=== PATIENT | female | born 1990 | race Caucasian/White ===

== ENCOUNTER → 2017-07-05 | Outpatient (CLI) | payer BC ==
[~2017-07-05] VITALS: Ht 167.6 cm; Wt 70.7 kg
[~2017-07-05] MED LIST: PRENATAL TABLE1 EAC3 PO
[2017-07-05 09:24] VITALS: BP 109/65
== END | disposition home or self-care (01) ==
LOC: IVINF 09:17
DX: Z31.82 Encounter for Rh incompatibility status (principal); Z3A.28 28 weeks gestation of pregnancy; Z67.91 Unspecified blood type, Rh negative
CPT/HCPCS: 96372; J2790

== ENCOUNTER 2017-09-26 17:24 | Outpatient (CLI) | payer BC ==
[~2017-09-26] VITALS: Ht 167.6 cm; Wt 78.6 kg
[2017-09-26 17:53] VITALS: BP 115/71
[2017-09-26 19:20] VITALS: BP 103/64
[2017-09-27] MEDS ORDERED: PERCOCET 5/31 TABLET PO (09:51)
[2017-09-27] MEDS ORDERED: MOTRIN800 MG PO (09:51)
== END 2017-09-26 20:45 | disposition home or self-care (01) ==
LOC: LDRP-OP 17:24 → 2WEST 17:26
DX: O47.1 False labor at or after 37 completed weeks of gestation (principal); O99.343 Other mental disorders complicating pregnancy, third trimester; F41.9 Anxiety disorder, unspecified; F32.9 Major depressive disorder, single episode, unspecified; F90.9 Attention-deficit hyperactivity disorder, unspecified type; Z87.440 Personal history of urinary (tract) infections; Z3A.40 40 weeks gestation of pregnancy
CPT/HCPCS: 59025; G0378

== ENCOUNTER 2017-09-26 23:03 | Inpatient (IN) | payer BC ==
[2017-09-26 23:43] VITALS: BP 133/76
[2017-09-26 23:55] LABS: BASOPHIL (%) 0.3 % (0-1); BASOPHIL COUNT 0.1 K/uL (0-0.1); EOSINOPHIL (%) 0.3 % (0-5); EOSINOPHIL COUNT 0.1 K/uL (0-0.3); HEMATOCRIT 36.3 % (36.0-46.0); HEMOGLOBIN 12.8 G/DL (11.9-15.5); IMMATURE GRANULOCYTE (%) 0.8 % (0.0-0.7); LYMPHOCYTE (%) 9.7 % (15-42); LYMPHOCYTE COUNT 1.7 K/uL (1.0-2.8); MCH 30.4 PG (29.0-34.0); MCHC 35.3 G/DL (30.0-36.0); MCV 86.2 FL (83-99); MONOCYTE (%) 6.3 % (3-12); MONOCYTE COUNT 1.1 K/uL (0-0.8); NEUTROPHIL (%) 82.6 % (45-76); NEUTROPHIL COUNT 14.3 K/uL (1.8-6.4); PLATELET COUNT 265 K/uL (156-360); RBC DIS.WIDTH-CV 13.2 % (11.8-14.6); RBC DIS.WIDTH-SD 40.8 % (39-53); RED BLOOD COUNT 4.21 M/uL (3.80-5.20); WHITE BLOOD COUNT 17.4 K/uL (4.1-10.2)
[2017-09-27] VITALS (31 sets, daily range): BP systolic 95–141; BP diastolic 51–85
[2017-09-27] MEDS ORDERED: PERCOCET 5/31 TABLET PO (09:51)
[2017-09-27] MEDS ORDERED: MOTRIN800 MG PO (09:51)
[2017-09-28 03:28] VITALS: BP 98/62
[2017-09-28 07:21] LABS: BASOPHIL (%) 0.2 % (0-1); EOSINOPHIL (%) 1.1 % (0-5); EOSINOPHIL COUNT 0.2 K/uL (0-0.3); HEMATOCRIT 26.5 % (36.0-46.0); IMMATURE GRANULOCYTE (%) 0.8 % (0.0-0.7); LYMPHOCYTE (%) 11.5 % (15-42); MCH 29.5 PG (29.0-34.0); MCHC 33.2 G/DL (30.0-36.0); MCV 88.9 FL (83-99); MONOCYTE COUNT 1.2 K/uL (0-0.8); NEUTROPHIL (%) 79.4 % (45-76); NEUTROPHIL COUNT 13.6 K/uL (1.8-6.4); PLATELET COUNT 192 K/uL (156-360); RBC DIS.WIDTH-CV 13.7 % (11.8-14.6); RBC DIS.WIDTH-SD 44.4 % (39-53); WHITE BLOOD COUNT 17.1 K/uL (4.1-10.2)
[2017-09-28 07:22] LABS: HEMOGLOBIN 8.8 G/DL (11.9-15.5); RED BLOOD COUNT 2.98 M/uL (3.80-5.20)
[2017-09-28 08:06] VITALS: BP 95/64
[2017-09-28 12:03] VITALS: BP 124/68
[2017-09-28 14:11] VITALS: BP 107/64
[2017-09-28 20:21] VITALS: BP 104/57
[2017-09-28 23:30] VITALS: BP 98/53
[2017-09-29 02:56] VITALS: BP 102/70
[2017-09-29 07:42] VITALS: BP 113/66
[2017-09-29 10:29] VITALS: BP 101/57
[2017-09-29 15:21] VITALS: BP 96/62
[2017-09-29 22:58] VITALS: BP 114/78
[2017-09-30 06:55] VITALS: BP 108/60
== END 2017-09-30 11:09 | disposition home or self-care (01) | DRG 766 ==
LOC: LDRP-OP 23:03 → 2WEST 23:05 → LDRP-OP 10-29 21:54
PROVIDERS: Midwife; Obstetrics & Gynecology
PROC: 10907ZC Drainage of Amniotic Fluid, Therapeutic from Products of Conception, Via Natural or Artificial Opening (ICD-10-PCS; principal; 2017-09-27)
PROC: 10D00Z1 Extraction of Products of Conception, Low, Open Approach (ICD-10-PCS; principal; 2017-09-27)
PROC: 00HU33Z Insertion of Infusion Device into Spinal Canal, Percutaneous Approach (ICD-10-PCS; principal; 2017-09-27)
PROC: 10H07YZ Insertion of Other Device into Products of Conception, Via Natural or Artificial Opening (ICD-10-PCS; 2017-09-27)
PROC: 3E0R3BZ Introduction of Anesthetic Agent into Spinal Canal, Percutaneous Approach (ICD-10-PCS; 2017-09-27)
DX: O62.0 Primary inadequate contractions (principal); O76 Abnormality in fetal heart rate and rhythm complicating labor and delivery; Z37.0 Single live birth; Z3A.40 40 weeks gestation of pregnancy
CPT/HCPCS: 59025; 83030; 85025; 86850; 86870; 86900; 86901; 86905; 86920; C1755; G0378; J0131; J0690; J1885; J2274; J2405; J2590; J2790; J3010; J7120